=== PATIENT | male | born 1980 | race African-American/Black ===

== ENCOUNTER 2017-02-01 20:40 | Day surgery (SDC) | payer MEDICAID ==
[~2017-02-01] VITALS: Ht 182.9 cm; Wt 96.0 kg
[~2017-02-01 20:40] MED LIST: BALANCED SALT IRRIG SOLN 15ML ONE; BRIM10DR2 LEFTEYE; BUPIVACAINE HCL/PF 0.75% (7.5MG/ML) 10ML ONE; CIPROFLOXACIN 0.3% OPHTH SOLN 2.5ML ONE; GENT5DRO5 LEFTEYE; KETO5DRO80 LEFTEYE; LIDOCAINE HCL 2%/EPINEPHRINE 1:100,000 20 ML VIAL INFIL ONE; NAPH15DR8 LEFTEYE; NEO/POLYMYX B SULF/DEXAMETH OPHTH OINT 3.5GM ONE; PRED5DRO7 LEFTEYE; PREDNISOLONE ACETATE 1% OPHTH DROPS 1ML ONE; TETRACAINE 0.5% OPHTH DROPS 2ML ONE
[2017-02-01] MEDS ORDERED: CEFAZOLIN 1000MG PREMIX 50 ML IV ONE (21:15)
[2017-02-01 21:30] VITALS: BP 119/76
[2017-02-01] MEDS ORDERED: SODIUM CHLORIDE 0.9% 500 ML IV ONE (21:30)
[2017-02-01] MEDS ORDERED: DEXAMETHASONE 4MG/ML 1ML VIAL ONE ×2 (21:36→23:11)
[2017-02-01] MEDS ORDERED: GENTAMICIN SULF 40MG/ML 2ML VIAL ONE (21:36)
[2017-02-01] MEDS ORDERED: FENTANYL CITRATE/PF 50MCG/ML 2ML VIAL ONE (22:27)
[2017-02-01] MEDS ORDERED: MIDAZOLAM HCL 2 MG/2 ML VIAL ONE (22:44)
[2017-02-01] MEDS ORDERED: LIDOCAINE HCL 1% 20ML VIAL (Pyxis) INJ ONE (23:11)
[2017-02-01] MEDS ORDERED: PROPOFOL 200MG/20ML VIAL IV ONE ×2 (23:11→23:14)
[2017-02-01] MEDS ORDERED: ONDANSETRON HCL 4MG/2ML VIAL IV NR (23:30)
[2017-02-01] MEDS ORDERED: FENTANYL CITRATE/PF 50MCG/ML 2ML VIAL IV PRN (23:30)
== END 2017-02-01 23:59 | disposition home or self-care (01) ==
LOC: ER 20:40 → OR 22:26 → SUPCPDRO 22:39 → ER 23:52 → OR 23:55
PROVIDERS: ATTEND Ophthalmology
DX: T81.33XA Disruption of traumatic injury wound repair, initial encounter (principal)
CPT/HCPCS: 66184; 66250; 99284; J0690; J1100; J2250; J3010; J3490; J7040; J1580; J2704

== ENCOUNTER 2022-09-27 12:20 | Day surgery (SDC) | payer MEDICAID ==
[~2022-09-27] VITALS: Ht 182.9 cm; Wt 102.0 kg
[~2022-09-27 12:20] MED LIST changes: -BALANCED SALT IRRIG SOLN 15ML ONE; -BUPIVACAINE HCL/PF 0.75% (7.5MG/ML) 10ML ONE; -CIPROFLOXACIN 0.3% OPHTH SOLN 2.5ML ONE; -LIDOCAINE HCL 2%/EPINEPHRINE 1:100,000 20 ML VIAL INFIL ONE; -NEO/POLYMYX B SULF/DEXAMETH OPHTH OINT 3.5GM ONE; -PREDNISOLONE ACETATE 1% OPHTH DROPS 1ML ONE; -TETRACAINE 0.5% OPHTH DROPS 2ML ONE
[2022-09-27] MEDS ORDERED: LATANOPROST 0.005% OPHTH DROPS 2.5ML BOTHEYE STA (13:02)
[2022-09-27] MEDS ORDERED: ACETAZOLAMIDE SODIUM 500MG/VIAL IV ONE (13:15)
[2022-09-27 13:23] LABS: BASOPHILS % 0.6 % (0.0-2.0); EOSINOPHILS % 6.1 % (0.0-5.0); HEMATOCRIT. 39.7 % (42.0-52.0); HEMOGLOBIN. 13.3 g/dL (14.0-18.0); LYMPHOCYTES % 24.8 % (20.0-50.0); MEAN CORPUSCULAR HEMOGLOBIN 28.8 pg (28.0-32.0); MEAN PLATELET VOLUME 8.9 fl (7.4-10.4); MONOCYTES % 11.2 % (2.0-8.0); NEUTROPHILS % 57.3 % (40.0-76.0); PLATELET 206 x1000/uL (130-400); RED BLOOD CELL COUNT 4.62 mill/uL (4.7-6.1); RED CELL DISTRIBUTION WIDTH 13.4 % (11.6-14.6)
[2022-09-27 13:30] LABS: CHLORIDE 107 mEq/L (98-107)
[2022-09-27 13:32] LABS: PROTHROMBIN TIME 10.9 sec (9.6-11.0)
[2022-09-27 13:38] VITALS: BP 111/62
[2022-09-27] MEDS ORDERED: FENTANYL CITRATE/PF 50MCG/ML 2ML VIAL ONE (15:35)
[2022-09-27] MEDS ORDERED: PROPOFOL 200MG/20ML VIAL IV ONE (15:36)
[2022-09-27] MEDS ORDERED: MIDAZOLAM HCL 2 MG/2 ML VIAL ONE (15:36)
[2022-09-27] MEDS ORDERED: DEXAMETHASONE 4MG/ML 1ML VIAL ONE ×2 (15:40→16:15)
[2022-09-27] MEDS ORDERED: ONDANSETRON HCL 4MG/2ML INJ ONE (16:15)
[2022-09-27] MEDS ORDERED: CEFAZOLIN SODIUM 1000MG/VIAL ONE (16:15)
[2022-09-27] MEDS ORDERED: FENTANYL CITRATE/PF 50MCG/ML 2ML VIAL IV PRN (16:30)
[2022-09-27] MEDS ORDERED: HYDROMORPHONE HCL/PF 2MG/ML CPJ IV PRN (16:30)
[2022-09-27] MEDS ORDERED: ATROPINE SULFATE 0.4MG/ML VIAL IV PRN (16:30)
[2022-09-27] MEDS ORDERED: DORZOLAM/TIMOLOL 2.23/0.68% OPHTH DROPS 10ML BOTHEYE SCH (21:00)
== END 2022-09-27 18:00 | disposition home or self-care (01) ==
LOC: ER 12:20 → EDBEDREQ 14:54 → EDBEDREQTM 14:54 → OR 15:41 → ER 15:45 → OR 18:00 → ENRESERV 19:10 → CANBEDREQ 09-28 12:52
PROVIDERS: ATTEND Ophthalmology
DX: H40.89 Other specified glaucoma (principal); Z79.899 Other long term (current) drug therapy; Z98.890 Other specified postprocedural states; Z20.822 Contact with and (suspected) exposure to COVID-19
CPT/HCPCS: 36415; 66180; 80053; 85025; 85610; 86850; 86900; 86901; 87426; 99283; C9803; J0690; J1100; J1120; J2250; J2405; J2704; J3010; C1762; C1783

== ENCOUNTER 2024-12-20 12:27 | Emergency (ER) | payer BC, MEDICAID ==
[~2024-12-20] VITALS: Ht 182.9 cm; Wt 107.0 kg
[~2024-12-20 12:27] MED LIST changes: +GENT5DRO38 LEFTEYE; -GENT5DRO5 LEFTEYE
[2024-12-20 12:34] VITALS: O2SAT 99
[2024-12-20] MEDS ORDERED: IBUP-2030 MT (14:33)
[2024-12-20] MEDS: TRAMADOL 50MG TABLET PO ONE (14:44)
[2024-12-20] MEDS: IBUPROFEN 800MG TABLET PO ONE (14:44)
[2024-12-20 14:51] VITALS: BP 142/82; PULSE 82; RESP 18; TEMP 37.05852; O2SAT 99
== END 2024-12-20 14:52 | disposition home or self-care (01) ==
LOC: ER 12:27
DX: S60.221A Contusion of right hand, initial encounter (principal); Z98.890 Other specified postprocedural states; W54.0XXA Bitten by dog, initial encounter; X58.XXXA Exposure to other specified factors, initial encounter; Y93.89 Activity, other specified; Y92.89 Other specified places as the place of occurrence of the external cause; Y99.8 Other external cause status
CPT/HCPCS: 73130; 99283